=== PATIENT | female | born 1990 | race Caucasian/White ===

== ENCOUNTER 2017-11-09 11:20 | Outpatient (CLI) | payer BC, SELFPAY ==
[2017-11-09] MEDS: Lactated Ringers 1,000 ML 125 ML IV (11:45)
[2017-11-09 11:49] VITALS: BMI 31.5
--- NOTE | 2017-11-09 12:18 | PCM.OP.BLANK ---
Operative Report Date of Procedure: 11/09/17 Surgeon: Dr. eMry Meyers Leather Goods Assembler: none Procedure performed: Attempted External Cephalic Version Complications: NONE PRE OP: 37 weeks BREECH requesting trial of External Cephalic version Post OP: 37 weeks Breech presentation Anesthesia: None FHR: 140s mod blanca, + accels, no decels. Category 1 reactive. TOCO: occasional ctx PROCEDURE NOTE: Informed consent was obtained and bedside ultrasound confirmed still breech presentation on maternal left. heart tones 140s moderate variability with positive accelerations no decelerations category 1 reactive. Visual contractions on the monitor. Gel was placed on the maternal abdomen and at this time and attempted forward somersault was performed I was able to move the head to the maternal right mid abdomen. Continuous attempted a forward roll was performed not successful. This time then a backward roll was attempted and unable to disengage head was back to the maternal left. Time procedure was deemed complete unsuccessful patient will undergo a primary at 39 weeks and unless spontaneous rotation.
--- NOTE | 2017-11-09 12:25 | OP.PCM_ITS ---
Operative Report Date of Procedure: 11/09/17 Surgeon: Dr. Mery Meyers Certified Recreational Therapist: none Procedure performed: Attempted External Cephalic Version Complications: NONE PRE OP: 37 weeks BREECH requesting trial of External Cephalic version Post OP: 37 weeks Breech presentation Anesthesia: None FHR: 140s mod blanca, + accels, no decels. Category 1 reactive. TOCO: occasional ctx PROCEDURE NOTE: Informed consent was obtained and bedside ultrasound confirmed still breech presentation on maternal left. heart tones 140s moderate variability with positive accelerations no decelerations category 1 reactive. Visual contractions on the monitor. Gel was placed on the maternal abdomen and at this time and attempted forward somersault was performed I was able to move the head to the maternal right mid abdomen. Continuous attempted a forward roll was performed not successful. This time then a backward roll was attempted and unable to disengage head was back to the maternal left. Time procedure was deemed complete unsuccessful patient will undergo a primary at 39 weeks and unless spontaneous rotation.
[2017-11-09] MEDS: Terbutaline 1 MG/ML Vial 0.25 MG SC (14:10)
--- NOTE | 2017-11-09 14:43 | PCM.PN.OB ---
Subjective: ctxs spacing out s/p ECV attempt. Good FM . - Physical Exam General: Alert, Cooperative, No apparent distress Abdomen: Soft, Non Tender, Non-Distended Weight: 94.1 kg Body Mass Index (BMI) 31.5 Assessment/Plan A/p 37 weeks, breech, ctxs no evidence of labor d/c home w/ labor precautions and kick counts plan primary c/s if no spont. version
--- NOTE | 2017-11-13 08:08 | OB.TRI.NOTE ---
History of Present Illness Date of Service: 11/09/17 Was patient seen by the physician?: Yes Reason For Visit: External cephalic version Home Medications Medication Instructions Recorded Vits [Prenatabs FA] 1 tablet PO DAILY 11/09/17 Allergies No Known Allergies Allergy (Verified 11/09/17 11:50) Impression/Plan 27yo @ 37 wks gestation- BREECH 1) failed attempt at external cephalic version- SEE OPERATIVE NOTE
== END 2017-11-09 15:00 | disposition home or self-care (01) ==
LOC: WPOUT 11:35 → WP 11:36
PROVIDERS: Family Provider Family Medicine; PCP Family Medicine; Visit Provider Obstetrics & Gynecology
DX: O32.1XX0 Maternal care for breech presentation, not applicable or unspecified (principal); Z3A.37 37 weeks gestation of pregnancy
CPT/HCPCS: 59025; 59050; 59412; 96372; 99218; J7120; G0378

== ENCOUNTER 2017-11-23 10:25 | Inpatient (IN) | payer BC, SELFPAY ==
[2017-11-17 14:40] VITALS: BMI 31.4
[2017-11-23] VITALS (19 sets, daily range): BP systolic 103–129; BP diastolic 55–86; PULSE 72–86; RESP 14–18; TEMP 36.1–37; O2SAT 95–98
[2017-11-23] MEDS: Lactated Ringers 1,000 ML 999 ML IV (11:00)
[2017-11-23 11:13] LABS: Absolute Lymphocyte Count 1.53 X10^3/ul (0.83-4.51); Absolute Neutrophil Count 6.7 X10^3/uL (2.0-7.7); Basophil# 0.01 X10^3/uL; Basophil% 0.1 % (0-1); Eosinophil# 0.04 X10^3/uL; Eosinophils% 0.4 % (0-5); Hematocrit 35.4 % (37-47); Hemoglobin 11.6 g/dl (12.0-15.0); Lymphocyte # 1.53 X10^3/ul (4.0); Lymphocyte % 17.1 % (19-41); Mean Corp Hgb Conc 32.8 g/gl (32-36); Mean Corpuscular Hgb 28.9 pg (27.0-32.0); Mean Corpuscular Volume 88.1 fL (81-99); Mean Platelet Vol. 10.5 fl (6.2-12.0); Monocyte# 0.64 X10^3/uL; Monocyte% 7.2 % (0-10); Neutrophil % 74.9 % (47-70); Platelet Count 190 K/mm3 (150-450); RBC Distribution Width CV 13.3 % (11.6-14.6); RBC Distribution Width SD 43.1 fl (35.1-43.9); Red Blood Count 4.02 M/mm3 (4.2-5.4)
[2017-11-23 11:16] LABS: POSITIVE COUNT NO; POSITIVE DIFFERENTIAL NO; POSITIVE MORPHOLOGY NO
[2017-11-23] MEDS: Sodium Citrate/Citric Acid 30 ML UDC PO (11:45)
[2017-11-23] MEDS: Lactated Ringers 1,000 ML 150 ML IV (12:00)
[2017-11-23] MEDS: Oxytocin 30 units/NS 500 ml 30 UNITS/500 ML IV.SOLN 167 UNITS IV (12:11)
--- NOTE | 2017-11-23 12:43 | OP.PCM_ITS ---
Delivery Classification: Scheduled Final DEEDEE: 11/30/17 Final DEEDEE Source: US <20 weeks Gestational age: 39 Weeks and 0 Days Indications: Breech presentation- failed External cephalic version. - term gestation 39 wks. Indications for : Breech Description of Procedure: Surgeon: Dr. Mery Meyers Belt Picker:KIMBERLY Zazueta Belt Picker: Mihaela Brumfield MS3 Preoperative diagnosis: breech presentation 39 wks Postoperative diagnosis: breech presentation 39 weeks Findings: live famale in breech presentation - delivered without complication Anesthesia: Spinal Complications: None Estimated blood loss:700 Implantable devices: None Operative note: After informed consent was obtained the patient was taken the operating room she was given spinal anesthesia. She was then placed in the supine position. She was prepped and draped in the normal sterile fashion. Anesthesia was found to be adequate. At this time a Pfannenstiel skin incision was made with a knife was carried down to the underlying layer of the fascia. The fascial incision was then extended laterally using curved Morel scissor. Tensions was then turned to the superior aspect of the fascial edge was grasped with 2 straight Neptune clamps tented up and the rectus muscle dissected off sharply using curved Morel scissor. Attention was then turned to the inferior aspect where again Neptune clamps were placed in the rectus muscles were tented up and the fascia was dissected off sharply using the curved Morel scissor. Rectus muscles were then in the midline bluntly and peritoneum was entered bluntly. Gentle opposing traction was placed. At this time the vesicouterine peritoneum was identified. Scalpel was used to make a uterine incision in a low transverse fashion. The uterus was then entered bluntly gentle opposing traction was placed to extend this incision. Membranes were ruptured clear. 's buttocks was brought to the uterine incision was delivered atraumatically followed by legs, arms and then head . delayed cord clamping performed- Cord was clamped and cut was handed to the waiting nursery team. The Placenta was removed from the uterus. The uterus was then removed from the abdominal cavity. The uterus was cleared of all clots and debris using a lap. At this time the uterine incision was reapproximated using #1 Vicryl in a running locked fashion. Hemostasis was appreciated. followed by a second imbricating layer. Posterior cul-de-sac was then cleared of all clots and debris. Uterus was placed back in the abdominal cavity. Gutters were cleared of all clots and debris. Uterine incision was reevaluated and noted to be of excellent hemostasis. luis alberto placed. At this time the peritoneum was grasped with Kellys reapproximated using #2 Vicryl suture in a running fashion. Muscles then reapproximated using #2 Vicryl in a interrupted mattress suture fashion. Luis Alberto placed. Fascia was then reapproximated using #1 Vicryl in a running fashion. Subcu layer was reapproximated with #2 0 plain gut suture in an interrupted fashion. Subcu layer was closed using 4-0 M vicryl in a Pk needle in a subcu fashion. Dry sterile dressing was applied. Instrument lap needle count correct ?2. Anticipated normal postoperative course. Amniotic Membrane Rupture Type: Spontaneous Amniotic Fluid Description: Clear Placenta [facility] Drain: Cristobal to straight drain Cord Entanglement: None Nuchal Cord Compression: Without compression Cord Vessel Description: 3 Vessels Esitmated Blood Loss (ml): 700 Gender: Female (1 minute): 9 (5 minute): 9 Delayed cord clamping: Yes Pre-op Antibiotic Given: Ancef 2 grams IV x1 Pt instructed on risks of surgery: Bleeding, Anesthesia Risks, Infection, Injury to surrounding structure(s) including bowel and bladder Complications: None - Admit VTE Documentation VTE Present on Admission: Yes VTE Mechan Device Prophylaxis: SCD's VTE Pharm Prophylaxis ordered?: No
[2017-11-23] MEDS: Lactated Ringers 1,000 ML 100 ML IV ×2 (12:50→20:15)
[2017-11-23 13:04] LABS: Mucous, Urine 0 SEEN /hpf (<or=2+); Red Blood Cells-Urine 0 SEEN /hpf (0-5)
[2017-11-23 13:29] LABS: Color, Urine Yellow (Yellow); Glucose, Dipstick Normal (Normal); Ketone-Dipstick 5 mg/dl (Negative); Leukocyte Esterase-Dipstick 100 /ul (Negative); Nitrite-Dipstick Negative (Negative); Occult Blood-Urine 50 /ul (Negative); Protein-Dipstick Negative (Negative); Specific Gravity, Urine 1.005 (1.002-1.030); Urine Bilirubin Dipstick Negative (Negative); Urine Clarity Clear (Clear); Urine Urobilinogen Normal (Normal)
[2017-11-23 13:38] LABS: Bacteria 1+ /hpf (None Seen); Squamous Epithelial Cells - UA 5-10 SEEN /hpf (5-10); Transitional Epithelial - Ur 0-5 SEEN /hpf (0-5); White Blood Cells 0-5 SEEN /hpf (0-5)
[2017-11-23] MEDS: Ketorolac 30 MG/ML Syringe IV (17:45)
[2017-11-24] VITALS (11 sets, daily range): BP systolic 111–129; BP diastolic 67–83; PULSE 89–102; RESP 16; TEMP 35.7–37.2; O2SAT 94–98
[2017-11-24] MEDS: Ketorolac 30 MG/ML Syringe IV ×3 (00:07→12:09)
[2017-11-24] MEDS: Lactated Ringers 1,000 ML 100 ML IV (05:53)
[2017-11-24 07:01] LABS: Hematocrit 31.2 % (37-47); Hemoglobin 10.3 g/dl (12.0-15.0); Mean Corpuscular Hgb 29.4 pg (27.0-32.0); Mean Corpuscular Volume 89.1 fL (81-99); Mean Platelet Vol. 10.1 fl (6.2-12.0); Platelet Count 174 K/mm3 (150-450); RBC Distribution Width CV 13.5 % (11.6-14.6); RBC Distribution Width SD 44.2 fl (35.1-43.9); White Blood Count 8.8 K/mm3 (4.4-11.0)
[2017-11-24 07:05] LABS: Scan Indicated on CBC? Y/N NO
--- NOTE | 2017-11-24 08:01 | PN.OBGYN_ITS ---
Subjective: pt seen at bedside, doing well. pt reports good pain control. lochia mild. no flatus yet. pt denies CP, SOB, dizziness. breast feeding well - Physical Exam General: Alert, Oriented x3 Abdomen: Soft, Non-Distended, - - funud firm. incision dressing dry and intact Extremities: No Calf Tenderness Vital Signs Temp Pulse Resp BP Pulse Ox 97.5 F L 95 16 111/67 95 11/24/17 04:00 11/24/17 04:00 11/24/17 06:00 11/24/17 04:00 11/24/17 06:00 Oxygen Delivery Method Room Air Weight: 93.894 kg Body Mass Index (BMI) 31.4 Intake and Output for Last 24 Hours 11/22/17 11/23/17 11/24/17 23:59 23:59 23:59 Intake Total 2479 / 2479 900 / 900 Output Total 550 / 550 1400 / 1400 Balance 1929 / 1929 -500 / -500 Laboratory Tests Past 24 Hrs 11/23/17 11/23/17 11/23/17 11:00 11:00 12:55 WBC 9.0 RBC 4.02 L Hgb 11.6 L Hct 35.4 L MCV 88.1 MCH 28.9 MCHC 32.8 RDW 13.3 RDW Differential 43.1 Plt Count 190 MPV 10.5 Immature Gran % (Auto) 0.300 Neut % (Auto) 74.9 H Lymph % (Auto) 17.1 L Adams % (Auto) 7.2 Eos % (Auto) 0.4 Baso % (Auto) 0.1 Absolute Neuts (auto) 6.7 Absolute Lymphs (auto) 1.53 Total Counted Not Reportable Urine Color Yellow Urine Clarity Clear Urine pH 7.0 Ur Specific [place] 1.005 Urine Protein Negative Urine Glucose (UA) Normal Urine Ketones 5 H Urine Occult Blood 50 H Urine Nitrite Negative Urine Bilirubin Negative Urine Urobilinogen Normal Ur Leukocyte Esterase 100 H Urine RBC 0 SEEN Urine WBC 0-5 SEEN Ur Squamous Epith Cells 5-10 SEEN Ur Transition Epith Cell 0-5 SEEN Urine Bacteria 1+ Urine Mucus 0 SEEN Blood Type O POSITIVE Antibody Screen NEGATIVE 11/24/17 06:40 WBC 8.8 RBC 3.50 L Hgb 10.3 L Hct 31.2 L MCV 89.1 MCH 29.4 MCHC 33.0 RDW 13.5 RDW Differential 44.2 H Plt Count 174 MPV 10.1 Immature Gran % (Auto) Neut % (Auto) Lymph % (Auto) Adams % (Auto) Eos % (Auto) Baso % (Auto) Absolute Neuts (auto) Absolute Lymphs (auto) Total Counted Urine Color Urine Clarity Urine pH Ur Specific [place] Urine Protein Urine Glucose (UA) Urine Ketones Urine Occult Blood Urine Nitrite Urine Bilirubin Urine Urobilinogen Ur Leukocyte Esterase Urine RBC Urine WBC Ur Squamous Epith Cells Ur Transition Epith Cell Urine Bacteria Urine Mucus Blood Type Antibody Screen Medical Necessity - Tobacco Use Smoking Status: Never smoker Assessment/Plan POD#1, doing well routine care dc rollins ambulation pain mgmt
--- NOTE | 2017-11-24 08:16 | DCINST_ITS ---
Discharge Diet: No Restrictions Discharge Activity: Return to Normal Activity, May Not Drive - for 2 weeks, May not drive while taking narcotic pain medications., May Shower, May Take a Tub Bath - in 7 days. May resume sexual activity in: 4-6 weeks Lifting Restrictions: 20 pounds Additional Activity Instructions:: Nothing in the vagina for 4-6 weeks. You may return to work/school in 6 weeks. Call your doctor if your incision/area has: Continuous Slow Oozing, Sudden Increased Bleeding, Increased Pain/ Swelling, Increased Redness, Foul Smelling Discharge Call your doctor if you observe: Fever of 101 or Higher, Using more than one pad per hour - for 2 hours Suture Line Care: Avoid Pulling/Pushing, Avoid Pinching/Bending Cleanse incision/area with: Keep Dressing Clean & Dry Additional Instructions: If you experience any of the following, contact your healthcare provider. * Bleeding that soaks a pad every hour for 2 hours * Fever 100.4 or higher * Unrelieved incision or abdominal pain * Swelling, redness, discharge or bleeding from your incision or episiotomy site * Your incision begins to separate * Problems urinating (including inability to urinate or burning while urinating) . * Visual changes * Severe headache * Flu-like symptoms * Pain or redness in one of both of your breasts * Pain, warmth, tenderness or swelling in your legs, especially the calf area * Frequent nausea and vomiting * Symptoms of depression or anxiety If you experience any of the following, call 911 or go to the nearest Emergency Room. * Chest pain * Problems breathing * Seizure activity * Partial or complete paralysis of a body part, slurred speech, weakness or drooping of the face, or a sudden inability to walk or hold your balance Allergies/Adverse Reactions: Allergies No Known Allergies Allergy (Verified 11/09/17 11:50) Medications to take at Discharge Vits [Prenatabs FA ] 1 tablet PO DAILY 11/09/17 Naproxen [Naprosyn] 250 - 500 mg PO Q8H PRN PRN #60 tab 11/24/17 Oxycodone HCl/Acetaminophen [Percocet 5/325] 1 tablet PO Q6H PRN PRN 7 Days #28 tablet 11/24/17 Senna/Docusate Sodium [Senokot-S] 1 tab PO DAILY PRN #20 tab 11/24/17 SimETHICONE [Mylicon] 80 mg PO PCHS PRN #30 tab 11/24/17 The following prescriptions were given: Oxycodone HCl/Acetaminophen [Percocet 5/325] 1 tablet PO Q6H PRN PRN 7 Days #28 tablet PRN Reason: Pain Naproxen [Naprosyn] 250 - 500 mg PO Q8H PRN PRN #60 tab PRN Reason: Mild Pain (-11/14) Senna/Docusate Sodium [Senokot-S] 1 tab PO DAILY PRN #20 tab PRN Reason: Constipation SimETHICONE [Mylicon] 80 mg PO PCHS PRN #30 tab PRN Reason: Indigestion/stomach pain Follow-Up: Call to make an appointment with your doctor for an incision check in 1-2 weeks. You will also need a 6 week post- follow up appointment. Please Follow Up With: Mery Meyers MD - Call to make an appointment for an incision check in 1-2 [phone] When: You will need a post- check in 6 weeks. Primary Care Physician: Sha Hooker III, MD [Primary Care Provider] -
[2017-11-24] MEDS: 0.9% Saline Lock 10 ML Syringe IV (12:09)
[2017-11-24] MEDS: Acetaminophen 500 MG Tablet 1000 MG PO (20:44)
[2017-11-25] MEDS: Ketorolac 30 MG/ML Syringe IV ×3 (00:14→13:39)
[2017-11-25 01:57] VITALS: BP 111/83; PULSE 86; RESP 18; TEMP 36.1; O2SAT 96
[2017-11-25] MEDS: Senna/Docusate Sodium 1 Tablet PO (06:30)
[2017-11-25 08:02] VITALS: BP 118/78; PULSE 70; RESP 20; TEMP 36.3
--- NOTE | 2017-11-25 08:10 | PCM.PN.OB ---
Subjective: pt seen at bedside, doing well. pt reports good pain control. lochia mild. pt reports + flatus, denies CP, SOB, dizziness. breast feeding. - Physical Exam General: Alert, Oriented x3 Abdomen: Soft, Non-Distended, - - fundus firm. Incision site dry and intact Extremities: No Calf Tenderness Vital Signs Temp Pulse Resp BP Pulse Ox 97.4 F L 70 20 H 118/78 96 11/25/17 08:02 11/25/17 08:02 11/25/17 08:02 11/25/17 08:02 11/25/17 01:57 Oxygen Delivery Method Room Air Weight: 93.894 kg Body Mass Index (BMI) 31.4 Intake and Output for Last 24 Hours 11/23/17 11/24/17 11/25/17 23:59 23:59 23:59 Intake Total 2479 / 2479 1500 / 1500 Output Total 550 / 550 4100 / 4100 Balance 1929 / 1929 -2600 / -2600 Medical Necessity - Tobacco Use Smoking Status: Never smoker Assessment/Plan POD#2, doing well routine care pain mgmt dc home
[2017-11-25 15:35] VITALS: BP 127/91; PULSE 70; RESP 18; TEMP 36.4; O2SAT 98
--- NOTE | 2017-11-26 07:32 | PCM.DC.BLA ---
Discharge Summary Date of Admission: 11/23/17 Date of Discharge: 11/25/17 Summary: pt underwent primary cs for breech presentation at 39 weeks. pt had uncomplicated post op course and was discharged home on POD#2.
== END 2017-11-25 16:50 | disposition home or self-care (01) | DRG 766 ==
LOC: WP 11-24 13:40 → ACINP 11-26 13:44 → WP 01-11 09:14
PROVIDERS: Admitting Provider Obstetrics & Gynecology; Family Provider Family Medicine; PCP Family Medicine; Visit Provider Obstetrics & Gynecology
DX: O32.1XX0 Maternal care for breech presentation, not applicable or unspecified (principal); Z37.0 Single live birth; Z3A.39 39 weeks gestation of pregnancy
CPT/HCPCS: 81001; 85025; 85027; 86850; 86900; 99218; J7120; A4216; G0378; J2405

== ENCOUNTER 2019-06-10 05:20 | Inpatient (IN) | payer BC, SELFPAY ==
--- NOTE | 2019-06-07 10:52 | PCM.HP.BLA ---
History and Physical Date of Admission: 06/10/19 Mery Paul Physician MOTOR BIKE MECHANIC H&P Signed Encounter Date: 06/07/2019 Expand All Collapse All Hide copied text Mustapha for details Vale Cordon is a 29 year old female who presents for routine OB visit and preoperative visit for scheduled section at 40.6 weeks gestation. Patient wanted a TOLAC however has not made any cervical changes and is not in labor. We discussed a repeat section and patient wishes to proceed at this time. Patient denies any vaginal bleeding, leaking fluid, regular contractions. Patient reports good movement. ? PAST?MEDICAL?HISTORY PAST MEDICAL HISTORY Diagnosis Date ? Abnormal Pap smear 09/01/13 ? ASCUS, can't R/O HGSIL ? Abnormal Pap smear of cervix ? ? Asthma ? ? In teenage years ? Infectious mononucleosis 07/14 ? PAST?SURGICAL?HISTORY PAST SURGICAL HISTORY Procedure Laterality Date ? DELIVERY ONLY ? 11/23/2017 ? VAGINOSCOPY ? 09/14/13 ? CIN2 ? FAMILY?HISTORY FAMILY HISTORY Problem Relation Age of Onset ? Cancer Mother ? ? Thigh ? other (Brain tumor) Mother ? ? Diabetes Maternal Grandfather ? ? Heart Maternal Grandfather ? ? Diabetes Paternal Grandfather ? ? Cancer Paternal Grandmother ? ? Unsure of type ? SOCIAL?HISTORY Social History Socioeconomic History Marital status: Spouse name: Alfredo Number of children: 0 Years of education: 12 Highest education level: Not on file Occupational History Occupation: Sales Employer: [employer] Social Needs Financial resource strain: Not on file Food insecurity: Worry: Not on file Inability: Not on file Transportation needs: Medical: Not on file Non-medical: Not on file Tobacco Use Smoking status: Never Smoker Smokeless tobacco: Never Used Tobacco comment: No one in the household smokes. Substance and Sexual Activity Alcohol use: Yes Comment: Occasionally, not while Drug use: No Sexual activity: Yes Partners: Male Lifestyle Physical activity: Days per week: Not on file Minutes per session: Not on file Stress: Not on file Relationships Social connections: Talks on phone: Not on file Gets together: Not on file Attends rastafarian service: Not on file Active member of club or organization: Not on file Attends meetings of clubs or organizations: Not on file Relationship status: Not on file Intimate partner violence: Fear of current or ex partner: Not on file Emotionally abused: Not on file Physically abused: Not on file Forced sexual activity: Not on file Other Topics Concerns: Not on file Social History Narrative Not on file ? CURRENT?MEDICATIONS ? Current Outpatient Medications: cholecalciferol, vitamin D3, (VITAMIN D3 ORAL) Take by mouth. MULTIVITAMIN ORAL Take by mouth. PNV NO.95/FERROUS FUM/FOLIC AC ( ORAL) Take by mouth. ? No current facility-administered medications for this visit. Allergies As of Date: 06/07/2019 (No Active Allergies) Fully Assessed 06/07/2019 ? ? REVIEW OF SYSTEMS Abdomen: no pain .. Expanded ROS: GENERAL: Negative for fever Allergies and current medication updated:Yes ? EXAM: BP 100/64 Wt 200 lb (90.7kg) LMP 08/07/2018 ? GENERAL: pleasant, female in no apparent distress HEENT: Normocephalic and atraumatic NECK: full range of motion DERMATOLOGY: Normal, without lesions, non-icteric and non-hirsute BREAST: deferred ABDOMEN: soft, non-tender and gravid PELVIC: closed/50/-2 NEURO: alert and oriented x3,exam grossly non-focal EXTREMITIES: normal ? ASSESSMENT AND PLAN: Encounter Diagnosis ? ? ICD-10-CM ? 1. History of delivery, currently O34.219 URINE OB DIP B/O 2. 40 weeks gestation of Z3A.40 URINE OB DIP B/O ? 3. Pt has been counseled on risks/benefits and alternatives of surgery including but not limited to anesthesia, bleeding, infection, injury to pelvic structures including bowel, bladder, ureters and vessels. Pt wishes to proceed with surgery at this time. 4. Consent signed 5. Preop instructions reviewed 6. Labor and kick counts reviewed 7. Will recheck cervix prior to scheduled c/s if advanced cervical dilation would consider IOL. ? Mery Meyers MD ? Routine Office Visit on 06/07/2019
[2019-06-10] VITALS (23 sets, daily range): BP systolic 98–115; BP diastolic 50–83; PULSE 70–90; RESP 14–18; TEMP 35.6–36.8; O2SAT 95–100; BMI 29.0
[2019-06-10] MEDS: Lactated Ringers 1,000 ML 999 ML IV (05:37)
[2019-06-10 05:56] LABS: Absolute Lymphocyte Count 2.34 X10^3/uL (0.83-4.51); Absolute Neutrophil Count 2.6 X10^3/uL (2.0-7.7); Basophil# 0.04 X10^3/uL; Basophil% 0.7 % (0-1); Eosinophil# 0.05 X10^3/uL; Eosinophils% 0.9 % (0-5); Hematocrit 34.8 % (37-47); Hemoglobin 11.5 g/dL (12.0-15.0); Lymphocyte # 2.34 X10^3/ul (4.0); Lymphocyte % 41.5 % (19-41); Mean Corpuscular Hgb 29.6 pg (27.0-32.0); Mean Corpuscular Volume 89.5 fL (81-99); Monocyte# 0.63 X10^3/uL; Monocyte% 11.2 % (0-10); NRBC Flagged by Analyzer 0 % (0-5); Neutrophil # 2.55 X10^3/uL (2.7-7.7); Neutrophil % 45.2 % (47-70); Platelet Count 146 K/mm3 (150-450); RBC Distribution Width CV 13.4 % (11.6-14.6); RBC Distribution Width SD 44.2 fl (35.1-43.9); Red Blood Count 3.89 M/mm3 (4.2-5.4); White Blood Count 5.6 K/mm3 (4.4-11.0)
[2019-06-10] MEDS: Lactated Ringers 1,000 ML 150 ML IV (06:40)
[2019-06-10] MEDS: Sodium Citrate/Citric Acid 30 ML UDC PO (07:03)
[2019-06-10] MEDS: Cefazolin 2 GM in 0.9% Normal Saline 100 ML IV (07:15)
[2019-06-10] MEDS: Triamcinolone Acetonide 40 MG/ML Vial OPERA.SITE (07:56)
--- NOTE | 2019-06-10 08:06 | PCM.OPRPT ---
Delivery Classification: Scheduled Final DEEDEE: 06/04/19 Final DEEDEE Source: US <20 weeks Gestational age: 40 Weeks and 6 Days extractor plant operator: Marcelo Kolb Type of Anesthesia:: Spinal Special Medications: Kenalog 40mg Implants Used: none Date of Procedure: 06/10/19 Pre-Operative Diagnosis: Term gestation, repeat c/s Post-Operative Diagnosis: same- live female Indications for : Repeat Elective Description of Procedure: Operative note: After informed consent was obtained the patient was taken to the operating room she was given spinal anesthesia. sHe was placed in the supine position. She was then prepped and draped in normal sterile fashion. Once spinal anesthesia was found to be adequate skin incision was made with a scalpel in a Pfannenstiel fashion- elipitcal incision made around previous scar- which was removed. It was carried down to the underlying layer of the fascia. Fascia was then incised midline with scapel and extended laterally using curved quinteros. 2 straight Delta's were placed in the superior aspect of the fascial edge and the rectus muscles were dissected off sharply. Attention was then turned to the inferior aspect where again the fascial edge was grasped with 2 straight [place] clamps tented up and the rectus muscle dissected off sharply. At this time the rectus muscles were grasped in the midline using 2 Allis clamps and scalpel was used to separate the rectus muscles. Using blunt force the peritoneum was then entered. Metzenbaums were used to take down the rectus muscles inferiorly as well as the peritoneum. At this time the vesicouterine peritoneum was identified. Metzenbaum scissors were used to create a bladder flap and then taken down digitally. Uterine incision was made in a low transverse fashion with the scalpel and then entered bluntly. Gentle opposing traction was placed to extend the uterine incision. The membranes were ruptured amniotic fluid clear. Nuchal cord x 1 noted- reduced- Infant's head was then brought to the uterine incision was delivered atraumatically followed by the rest infant's body. At this time delayed cord clamping was performed mouth nose were suctioned. Infant was then handed to the waiting nursery team. The placenta was then removed with gentle traction. The uterus was removed from the intra-abdominal cavity is wrapped in a moist lap. He was cleared of all clots and debris using a moist lap. Ring clamps were placed on the uterine angles. #1 Vicryl suture was used in a running locked fashion for the first layer. Followed by second imbricating layer with #1 Vicryl. At this time then the uterus was placed back into abdominal cavity uterine incision was evaluated and noted to be of good hemostasis. Tubes and ovaries were evaluated they were normal. Great hemostasis was appreciated at this time the uterine incision was again evaluated good hemostasis was appreciated. The peritoneum was grasped with Kellys. Peritoneum and muscle was reapproximated using #2 Vicryl suture in a running fashion. The fascia was then reapproximated using #1 Vicryl in a running fashion. Subcutaneous layer was evaluated and Bovie was used for any small oozing that was noted per #2-0 plain gut suture was then used to reapproximate the subcutaneous layer 4-0 monocryl on a Pk needle was used to reapproximate the skin in a subcutaneous fashion. Kenalog 40mg (1ml) injected to incision to help prevent keloid formation. Dry sterile dressing was applied. Instrument lap needle count were correct ?2. Anticipated normal postoperative course for this patient. Amniotic Membrane Rupture Type: Artificial Amniotic Fluid Description: Clear Placenta Disposition: [facility] Drain: Cristobal to straight drain Cord Entanglement: Around neck x 1, loose Nuchal Cord Compression: Without compression Cord Vessel Description: 3 Vessels Esitmated Blood Loss (ml): 600 Gender: Male (1 minute): 8 (5 minute): 9 Delayed cord clamping: Yes Antibiotic Given: Ancef 2 grams IV x1 Pt instructed on risks of surgery: Bleeding, Anesthesia Risks, Infection, Need for Future C-Sections, Injury to surrounding structure(s) including bowel and bladder Complications: None - Admit VTE Documentation VTE Present on Admission: Yes VTE Mechan Device Prophylaxis: SCD's VTE Pharm Prophylaxis ordered?: No
[2019-06-10] MEDS: Oxytocin 30 units/NS 500 ml 30 UNITS/500 ML IV.SOLN 167 UNITS IV (08:20)
[2019-06-10] MEDS: Lactated Ringers 1,000 ML 100 ML IV (11:27)
[2019-06-10] MEDS: Ketorolac 30 MG/ML Syringe IV ×2 (12:33→18:02)
[2019-06-10] MEDS: 0.9% Saline Lock 10 ML Syringe IV (12:34)
[2019-06-10] MEDS: Acetaminophen 500 MG Tablet 1000 MG PO (16:10)
[2019-06-11] VITALS (7 sets, daily range): BP systolic 100–123; BP diastolic 63–83; PULSE 71–90; RESP 16; TEMP 36.7–37.2; O2SAT 95–98
[2019-06-11] MEDS: 0.9% Saline Lock 10 ML Syringe IV ×5 (00:12→11:41)
[2019-06-11] MEDS: Ketorolac 30 MG/ML Syringe IV ×4 (00:12→17:43)
[2019-06-11 06:05] LABS: Hematocrit 31.6 % (37-47); Hemoglobin 10.4 g/dL (12.0-15.0); Mean Corp Hgb Conc 32.9 g/dL (32-36); Mean Corpuscular Hgb 30.1 pg (27.0-32.0); Mean Corpuscular Volume 91.6 fL (81-99); Platelet Count 121 K/mm3 (150-450); RBC Distribution Width CV 13.5 % (11.6-14.6); RBC Distribution Width SD 45.5 fl (35.1-43.9); Red Blood Count 3.45 M/mm3 (4.2-5.4); White Blood Count 6.5 K/mm3 (4.4-11.0)
--- NOTE | 2019-06-11 07:56 | PN.OBGYN_ITS ---
Subjective: pt seen at bedside, doing well. pt reports good pain control. lochia mild. Breast feeding well. Passing flatus and voiding w/o difficulty. - Physical Exam General: Alert, Oriented x3 Abdomen: Soft, Non-Distended, Passing Flatus, - - fundus firm. dressing intact- small areas of old blood- not saturated Extremities: No Calf Tenderness Vital Signs Temp Pulse Resp BP Pulse Ox 98.0 F 89 16 100/65 95 06/11/19 04:00 06/11/19 06:00 06/11/19 06:00 06/11/19 04:00 06/11/19 06:00 Oxygen Delivery Method Room Air Weight: 89.1 kg Body Mass Index (BMI) 29.0 Intake and Output for Last 24 Hours 06/09/19 06/10/19 06/11/19 23:59 23:59 23:59 Intake Total 2197.5 / 2197.5 Output Total 2800 / 2800 Balance -602.5 / -602.5 Laboratory Tests Past 24 Hrs 06/11/19 04:45 WBC 6.5 RBC 3.45 L Hgb 10.4 L Hct 31.6 L MCV 91.6 MCH 30.1 MCHC 32.9 RDW Std Deviation 45.5 H RDW Coeff of Zay 13.5 Plt Count 121 L MPV 10.0 Medical Necessity - Tobacco Use Smoking Status: Never smoker Assessment/Plan POD#1, doing well routine care pain mgmt ambulation
[2019-06-11] MEDS: Senna/Docusate Sodium 1 Tablet PO (14:14)
[2019-06-11] MEDS: oxyCODONE 5 MG Tablet PO ×2 (16:05→21:07)
[2019-06-12] MEDS: Ketorolac 30 MG/ML Syringe IV ×2 (00:03→06:12)
[2019-06-12 02:00] VITALS: BP 119/86; PULSE 86; RESP 16; TEMP 36.6
--- NOTE | 2019-06-12 08:45 | PCM.PN.OB ---
Subjective: She is seen at bedside doing well. Patient reports good pain control. Voiding without difficulty. Passing flatus. Breast-feeding well. - Physical Exam General: Alert, Oriented x3 Abdomen: Bowel Sounds Present, Non-Distended, - - incision dressing intact- dry Extremities: No Calf Tenderness Vital Signs Temp Pulse Resp BP Pulse Ox 97.9 F 86 16 119/86 H 98 06/12/19 02:00 06/12/19 02:00 06/12/19 02:00 06/12/19 02:00 06/11/19 14:00 Oxygen Delivery Method Room Air Weight: 89.1 kg Body Mass Index (BMI) 29.0 Intake and Output for Last 24 Hours 06/10/19 06/11/19 06/12/19 23:59 23:59 23:59 Intake Total 2197.5 / 2197.5 Output Total 2800 / 2800 Balance -602.5 / -602.5 Medical Necessity - Tobacco Use Smoking Status: Never smoker Assessment/Plan POD#2, doing well routine care pain mgmt dc home nipple cream ordered.
--- NOTE | 2019-06-12 08:46 | DCINST_ITS ---
Discharge Diet: No Restrictions Discharge Activity: Return to Normal Activity, May Not Drive - for 2 weeks, May not drive while taking narcotic pain medications., May Shower, May Take a Tub Bath - in 7 days. May resume sexual activity in: 4-6 weeks Lifting Restrictions: 20 pounds Additional Activity Instructions:: Nothing in the vagina for 4-6 weeks. You may return to work/school in 6 weeks. Call your doctor if your incision/area has: Continuous Slow Oozing, Sudden Increased Bleeding, Increased Pain/ Swelling, Increased Redness, Foul Smelling Discharge Call your doctor if you observe: Fever of 101 or Higher, Using more than one pad per hour - for 2 hours Suture Line Care: Avoid Pulling/Pushing, Avoid Pinching/Bending Cleanse incision/area with: Keep Dressing Clean & Dry Additional Instructions: If you experience any of the following, contact your healthcare provider. * Bleeding that soaks a pad every hour for 2 hours * Fever 100.4 or higher * Unrelieved incision or abdominal pain * Swelling, redness, discharge or bleeding from your incision or episiotomy site * Your incision begins to separate * Problems urinating (including inability to urinate or burning while urinating). * Visual changes * Severe headache * Flu-like symptoms * Pain or redness in one of both of your breasts * Pain, warmth, tenderness or swelling in your legs, especially the calf area * Frequent nausea and vomiting * Symptoms of depression or anxiety If you experience any of the following, call 911 or go to the nearest Emergency Room. * Chest pain * Problems breathing * Seizure activity * Partial or complete paralysis of a body part, slurred speech, weakness or drooping of the face, or a sudden inability to walk or hold your balance Allergies/Adverse Reactions: Allergies No Known Allergies Allergy (Verified 06/10/19 05:34) Medications to take at Discharge Vits [Prenatabs FA ] 1 tablet PO DAILY 11/09/17 Ibuprofen [Motrin] 600 mg PO Q6H PRN PRN #60 tab 06/12/19 Oxycodone HCl/Acetaminophen [Percocet 5/325] 1 tab PO Q6H PRN PRN 7 Days #20 tab 06/12/19 Senna/Docusate Sodium [Senokot-S] 1 - 2 tab PO DAILY PRN #20 tab 06/12/19 SimETHICONE [Mylicon] 80 mg PO PCHS PRN #20 tab 06/12/19 The following prescriptions were given: Ibuprofen [Motrin] 600 mg PO Q6H PRN PRN #60 tab PRN Reason: Mild Pain (1-11/14) Prescription Printed SimETHICONE [Mylicon] 80 mg PO PCHS PRN #20 tab PRN Reason: Indigestion/stomach pain Prescription Printed Oxycodone HCl/Acetaminophen [Percocet 5/325] 1 tab PO Q6H PRN PRN 7 Days #20 tab PRN Reason: Pain Score 1-06/16 Prescription Printed Senna/Docusate Sodium [Senokot-S] 1 - 2 tab PO DAILY PRN #20 tab PRN Reason: Constipation Prescription Printed Follow-Up: Call to make an appointment with your doctor for an incision check in 1-2 weeks. You will also need a 6 week post- follow up appointment. Test results from this visit will be discussed in further detail at your follow- up appointment, if applicable. Please Follow Up With: Mery Meyers MD - Call to make an appointment for an incision check in 1-2 [phone] When: You will need a post- check in 6 weeks. Primary Care Physician: Sha Hooker III, MD [Primary Care Provider] -
[2019-06-12 08:47] VITALS: BP 112/78; PULSE 90; RESP 16; TEMP 36.4; O2SAT 97
--- NOTE | 2019-06-12 08:47 | PCM.DC.BLA ---
Discharge Summary Date of Admission: 06/10/19 Date of Discharge: 06/12/19 Summary: Patient admitted to [facility] on 06/10/2019 for scheduled repeat section since spontaneous labor did not proceed. Patient underwent a repeat low transverse section without complication. Live female was born. Patient had a normal postoperative course was uncomplicated. She discharged home on postoperative day #2 06/12/2019 - Physical Exam Vital Signs Temp Pulse Resp BP Pulse Ox 97.9 F 86 16 119/86 H 98 06/12/19 02:00 06/12/19 02:00 06/12/19 02:00 06/12/19 02:00 06/11/19 14:00 Oxygen Delivery Method Room Air Weight: 89.1 kg Body Mass Index (BMI) 29.0 Intake and Output for Last 24 Hours 06/10/19 06/11/19 06/12/19 23:59 23:59 23:59 Intake Total 2197.5 / 2197.5 Output Total 2800 / 2800 Balance -602.5 / -602.5
== END 2019-06-12 10:50 | disposition home or self-care (01) | DRG 788 ==
PROVIDERS: Admitting Provider Obstetrics & Gynecology; Family Provider Family Medicine; PCP Family Medicine; Referring Provider Obstetrics & Gynecology; Visit Provider Obstetrics & Gynecology
PROC: 10D00Z1 Extraction of Products of Conception, Low, Open Approach (ICD-10-PCS; CPT 59514; principal; 2019-06-10 07:15)
DX: O48.0 Post-term pregnancy (principal); Z3A.40 40 weeks gestation of pregnancy; O69.81X0 Labor and delivery complicated by cord around neck, without compression, not applicable or unspecified; Z37.0 Single live birth
CPT/HCPCS: 85025; 85027; 86850; 86900; 86901; 99218; J7120; A4216; G0378; J2405

== ENCOUNTER 2021-10-22 17:50 | Outpatient (CLI) | payer OTHER, SELFPAY ==
[2021-10-22 18:06] VITALS: BMI 29.1
[2021-10-22] MEDS: 0.9% Normal Saline 1,000 ML 999 ML IV (19:00)
[2021-10-22] MEDS: Ondansetron 4 MG/2 ML Vial IM (19:07)
[2021-10-22 19:14] VITALS: TEMP 37
[2021-10-22 19:16] VITALS: BP 119/79; PULSE 111; O2SAT 97
[2021-10-22 19:19] LABS: Hematocrit 36.9 % (37-47); Hemoglobin 12.8 g/dL (12.0-15.0); Mean Corp Hgb Conc 34.7 g/dL (32-36); Mean Corpuscular Hgb 31.8 pg (27.0-32.0); Mean Corpuscular Volume 91.6 fL (81-99); Mean Platelet Vol. 10.2 fl (6.2-12.0); Platelet Count 153 K/mm3 (150-450); RBC Distribution Width CV 12.6 % (11.6-14.6); RBC Distribution Width SD 41.6 fl (35.1-43.9); Red Blood Count 4.03 M/mm3 (4.2-5.4); White Blood Count 7.4 K/mm3 (4.4-11.0)
[2021-10-22 19:40] LABS: ALB/GLOB Ratio 0.7 RATIO (0.9-2.4); AST(SGOT) 12 U/L (15-37); Alanine Aminotransfer ALT/SGPT 16 U/L (13-56); Albumin, Serum 2.9 g/dL (3.2-5.0); Alkaline Phosphatase 202 U/L (45-117); Anion Gap 6 (5-15); BUN 4 mg/dL (7-18); BUN/Creat Ratio 9.5 RATIO (10-20); Calcium,Total 8.7 mg/dL (8.5-10.1); Chloride 106 mmol/L (98-107); Creatinine, Serum 0.42 mg/dL (0.55-1.02); EST Glomerular Filtration Rate 188 mL/min (>60); Est Glom Filt Rate - Afr Amer 228 mL/min (>60); Estimated Creatinine Clearance 206.55 ml/min; Globulin 4.2 g/dL (2.2-4.2); Glucose 80 mg/dL (74-106); Potassium 3.5 mmol/L (3.5-5.1); Protein, Total 7.1 g/dL (6.4-8.2); Sodium Level 136 mmol/L (136-145)
--- NOTE | 2021-10-27 05:11 | OB.TRI.NOTE ---
HPI - General HPI Narrative GIUSEPPE DICKSON, is a 31 F who presents for N&V. Maternal Data Information Final DEEDEE: 11/07/21 Gestational age: 37&5 PFSH PFSH Home Medications Prenatabs FA 1 tab PO DAILY 11/09/17 [History Last Taken 10/21/21 21:00] Allergy/AdvReac Type Severity Reaction Status Date / Time No Known Allergies Allergy Verified 10/22/21 19:09 Social History Smoking Status: Never smoker History Elective abortions Hx Para 1 Spontaneous abortions Hx # Term Pregnancies Ectopic pregnancies Hx # Pregnancies Multiple births # of living children NST FHR Rate Baby A Baseline: 130 Variability:: Moderate Accelerations:: 15 x 15 Decelerations:: Variable NST Reactive:: Yes Uterine Activity:: Irregular Assessment & Plan (1) Nausea and vomiting in : COMMENT: 37&5 PLAN: Labs & IV hydration Reactive NST
== END 2021-10-22 23:59 | disposition home or self-care (01) ==
LOC: WPOUT 18:00 → WP 18:01
PROVIDERS: Visit Provider Obstetrics & Gynecology
DX: O21.9 Vomiting of pregnancy, unspecified (principal); Z3A.37 37 weeks gestation of pregnancy
CPT/HCPCS: 96360; 96361; 36415; 59025; 59050; 80053; 85027; 99218; J7030; J7040; G0378; J2405

== ENCOUNTER 2021-10-31 09:25 | Inpatient (IN) | payer OTHER, SELFPAY ==
[2021-10-31] VITALS (22 sets, daily range): BP systolic 103–125; BP diastolic 66–83; PULSE 77–155; RESP 12–18; TEMP 36.2–36.6; O2SAT 82–99; BMI 29.5
--- NOTE | 2021-10-31 08:03 | PCM.HP.BLA ---
History and Physical Date of Admission: 10/31/21 Pre-Op History and Physical HPI: The patient is a 31 year old female presenting for pre-operative visit. She is scheduled for , for elective repeat cs at 39 weeks on 10/31/21. Procedure discussed along with risks, benefits and complications. Other alternatives discussed for management. Consent form signed? Yes. PAST MEDICAL HISTORY PAST MEDICAL HISTORY Diagnosis Date ? Abnormal Pap smear 09/01/13 ASCUS, can't R/O HGSIL ? Abnormal Pap smear of cervix ? Asthma In teenage years ? Infectious mononucleosis 07/14 PAST SURGICAL HISTORY PAST SURGICAL HISTORY Procedure Laterality Date ? DELIVERY ONLY 11/23/2017 ? DELIVERY ONLY 06/10/2019 RC/S low transverse ? VAGINOSCOPY 09/14/13 CIN2 CURRENT MEDICATIONS Current Outpatient Medications Medication Sig Dispense Refill ? OTC NUTRITIONAL SUPPLEMENT Collagen powder ? PNV NO.95/FERROUS FUM/FOLIC AC ( ORAL) Take by mouth. No current facility-administered medications for this visit. ALLERGIES: Sonido Perox-Hc, Cleanser No.14 PERSONAL HISTORY: SOCIAL HISTORY Social History Tobacco Use ? Smoking status: Never Smoker ? Smokeless tobacco: Never Used ? Tobacco comment: No one in the household smokes. Substance Use Topics ? Alcohol use: Yes Comment: Occasionally, not while ? Drug use: No FAMILY HISTORY: FAMILY HISTORY FAMILY HISTORY Problem Relation Age of Onset ? Cancer Mother Thigh ? other (Brain tumor) Mother ? No Known Problems Father ? No Known Problems Sister ? No Known Problems Maternal Grandmother ? Diabetes Maternal Grandfather ? Heart Maternal Grandfather ? Cancer Paternal Grandmother Unsure of type ? Diabetes Paternal Grandfather ? No Known Problems Daughter ? No Known Problems Daughter REVIEW OF SYMPTOMS: negative except as noted above PHYSICAL EXAMINATION: VITALS: Blood pressure 104/60, weight 199 lb (90.3 kg), last menstrual period 01/31/2021, currently . GENERAL: The patient is well nourished, well hydrated in no acute distress. , The patient is oriented to time, place, and person. NECK: full range of motion ABD: soft, gravid,non tender GENITALIA: normal IMPRESSION: repeat elctive c/s at 39 weeks PLAN: R/CS at 39 weeks Pt has been counseled on risks/benefits and alternatives of surgery including but not limited to anesthesia, bleeding, infection, injury to pelvic structures including bowel, bladder, ureters and vessels. Pt wishes to proceed with surgery at this time. Risk for blood transfusion reviewed- will accept PRE OP covid ordered Pre and Post op instruction reviewed Will inject Kenalog at time of cs closure for keloid prevention I have reviewed and updated past medical and surgical history, medications and allergies Mery Paul MD
[2021-10-31] MEDS: Lactated Ringers 1,000 ML 999 ML IV (09:45)
[2021-10-31 10:02] LABS: Absolute Lymphocyte Count 1.51 X10^3/uL (0.83-4.51); Absolute Neutrophil Count 5.1 X10^3/uL (2.0-7.7); Basophil# 0.02 X10^3/uL; Basophil% 0.3 % (0-1); Eosinophil# 0.06 X10^3/uL; Eosinophils% 0.8 % (0-5); Lymphocyte # 1.51 X10^3/ul (0.83-4.51); Lymphocyte % 21.2 % (19-41); Mean Corp Hgb Conc 36.1 g/dL (32-36); Mean Corpuscular Volume 88.7 fL (81-99); Mean Platelet Vol. 10.8 fl (6.2-12.0); Monocyte# 0.37 X10^3/uL; Monocyte% 5.2 % (0-10); NRBC Flagged by Analyzer 0 % (0-5); Neutrophil # 5.09 X10^3/uL (2.7-7.7); Neutrophil % 71.4 % (47-70); Platelet Count 210 K/mm3 (150-450); RBC Distribution Width CV 12.3 % (11.6-14.6); RBC Distribution Width SD 39.9 fl (35.1-43.9); Red Blood Count 4.06 M/mm3 (4.2-5.4); White Blood Count 7.1 K/mm3 (4.4-11.0)
[2021-10-31] MEDS: Acetaminophen 500 MG Tablet 1000 MG PO ×2 (10:25→17:01)
[2021-10-31] MEDS: Lactated Ringers 1,000 ML 150 ML IV (10:45)
[2021-10-31] MEDS: Sodium Citrate/Citric Acid 30 ML UDC PO (11:48)
[2021-10-31] MEDS: Cefazolin 2 GM in 0.9% Normal Saline 100 ML IV (12:00)
[2021-10-31] MEDS: Triamcinolone Acetonide 40 MG/ML Vial ID (12:40)
--- NOTE | 2021-10-31 12:49 | EX.PCM.OBRPT ---
Assessment & Plan (1) Delivery by section: Maternal Data Information Final DEEDEE Source: US <20 weeks Gestational age: 39 Details Operative Information Date of Procedure: 10/31/21 Pre-Operative Diagnosis: term gestation, previous cs Post-Operative Diagnosis: same, live male Indications for : Repeat Elective Classification: Scheduled Procedure Type: low transverse sheet metal fabricator #1: Chastity Bruner Type of Anesthesia: Spinal Antibiotic Given: Ancef 2 grams IV x1 Drain: Cristobal to straight drain Estimated Blood Loss: 600 Fluids Replaced: 1100 Procedure Start Time: 12:15 Procedure Stop Time: 12:42 Time of Delivery: 12:20 Findings Description of Procedure: After informed consent was obtained the patient was taken the operating room she was given spinal anesthesia. She was then placed in the supine position. She was prepped and draped in the normal sterile fashion. Anesthesia was found to be adequate. At this time a Pfannenstiel skin incision was made with a knife was carried down to the underlying layer of the fascia. The fascial incision was then extended laterally using curved Morel scissor. Attention was then turned to the superior aspect of the fascial edge was grasped with 2 straight Delta clamps tented up and the rectus muscle dissected off sharply using curved Morel scissor. Attention was then turned to the inferior aspect where again Delta clamps were placed in the rectus muscles were tented up and the fascia was dissected off sharply using the curved Morel scissor. Rectus muscles were then in the midline bluntly and peritoneum was entered bluntly. Gentle opposing traction was placed. minimal adhesions noted- At this time the vesicouterine peritoneum was identified. metzenbaum used to create bladder flap and take down adhsesion. Scalpel was used to make a uterine incision in a low transverse fashion. The uterus was then entered bluntly gentle opposing traction was placed to extend this incision. Membranes were ruptured clear. 's head was not engaged- freely mobile- Kiwi vacuum applied at flexion point, green suction zone obtained and with gentle traction head was brought to the uterine incision was delivered atraumatically. delayed cord clamping performed. Cord was clamped and cut infant was handed to the waiting nursery team. The Placenta was removed from the uterus. The uterus was then removed from the abdominal cavity. The uterus was cleared of all clots and debris using a lap. At this time the uterine incision was reapproximated using #1 Vicryl in a running locked fashion. Second imbricating layer placed with 1-0 vicryl. Hemostasis was appreciated. Posterior cul-de-sac was then cleared of all clots and debris. ovaries and tubes normal. Uterus was placed back in the abdominal cavity. Gutters were cleared of all clots and debris. Uterine incision was reevaluated and noted to be of excellent hemostasis. At this time the peritoneum and muscle were grasped with Kellys reapproximated using #2 Vicryl suture in a running fashion. Fascia was then reapproximated using #1 Vicryl in a running fashion. Subcu layer was reapproximated with #2 0 plain gut suture in an interrupted fashion. Subcu layer was closed using 4-0 vicryl in a subcu fashion. Kenalog 40mg/ml injected around incision due to h/o keloid scarring after first c/s. Steri strips applied. Dry sterile dressing was applied. Instrument lap needle count correct ?2. Anticipated normal postoperative course. Presentation: Positive for Vertex Amniotic Membrane Rupture Type: Artificial Amniotic Fluid Description: Clear Placental Delivery Description: Expressed Placenta Disposition: [facility] Cord Vessel Description: 3 Vessels Cord Entanglement: None Infant A Gender: Male (1 minute): 9 (5 minute): 9 Delayed Cord Clamping: Yes Complications Risks of Surgery Discussed w/Patient: Bleeding, Anesthesia Risks, Infection, Need for Future C-Sections and Injury to surrounding structure(s) including bowel and bladder Complications: none
[2021-10-31] MEDS: Oxytocin 30 units/NS 500 ml 30 UNITS/500 ML IV.SOLN 167 UNITS IV (13:00)
[2021-10-31] MEDS: Ketorolac 30 MG/ML Syringe IV ×2 (13:56→20:36)
[2021-10-31] MEDS: Lactated Ringers 1,000 ML 100 ML IV (15:57)
[2021-11-01] VITALS (9 sets, daily range): BP systolic 102–107; BP diastolic 62–74; PULSE 77–94; RESP 14–16; TEMP 36.1–36.8; O2SAT 81–99
[2021-11-01] MEDS: Acetaminophen 500 MG Tablet 1000 MG PO ×3 (00:20→12:30)
[2021-11-01] MEDS: Ketorolac 30 MG/ML Syringe IV ×2 (01:55→07:57)
[2021-11-01] MEDS: 0.9% Saline Lock 10 ML Syringe IV ×2 (01:56→07:58)
[2021-11-01 06:16] LABS: Hematocrit 30.2 % (37-47); Hemoglobin 10.6 g/dL (12.0-15.0); Mean Corp Hgb Conc 35.1 g/dL (32-36); Mean Corpuscular Hgb 31.6 pg (27.0-32.0); Mean Corpuscular Volume 90.1 fL (81-99); Mean Platelet Vol. 10.4 fl (6.2-12.0); Platelet Count 166 K/mm3 (150-450); RBC Distribution Width CV 12.5 % (11.6-14.6); RBC Distribution Width SD 41.3 fl (35.1-43.9); Red Blood Count 3.35 M/mm3 (4.2-5.4); White Blood Count 9.5 K/mm3 (4.4-11.0)
--- NOTE | 2021-11-01 08:31 | PCM.PN.OB ---
Subjective Subjective Patient seen at bedside. Feeling good. Denies pain, headache, dizziness, CP, or SOB. Ambulating and voiding without difficulty. Lochia minimal. with minimal support. slightly tongue tied and being evaluated by department. Patient desires discharge home later today. Objective Data Objective Data Vital Signs: Vital Signs Temp Pulse Resp BP Pulse Ox 98 F 89 16 103/70 99 11/01/21 08:10 11/01/21 08:10 11/01/21 08:10 11/01/21 08:10 11/01/21 08:10 Oxygen Delivery Method Room Air Weight: 199 lb 8.293 oz Body Mass Index (BMI) 29.5 Intake & Output: Intake and Output for Last 24 Hours 10/30/21 10/31/21 11/01/21 23:59 23:59 23:59 Intake Total 3302.5 / 3302.5 Output Total 1350 / 1350 1350 / 1350 Balance 1952.5 / 1952.5 -1350 / -1350 Lab / Micro Data Result Diagrams: 11/01/21 06:10 Labs: Laboratory Results - last 24 hr 10/31/21 09:45: WBC 7.1, RBC 4.06 L, Hgb 13.0, Hct 36.0 L, MCV 88.7, MCH 32.0, MCHC 36.1 H, RDW Std Deviation 39.9, RDW Coeff of Zay 12.3, Plt Count 210, MPV 10.8, Immature Gran % (Auto) 1.100 H, Neut % (Auto) 71.4 H, Lymph % (Auto) 21.2, [place] % (Auto) 5.2, Eos % (Auto) 0.8, Baso % (Auto) 0.3, Absolute Neuts (auto) 5.1, Absolute Lymphs (auto) 1.51, Nucleated RBC % 0 10/31/21 09:45: Blood Type O POSITIVE, Antibody Screen NEGATIVE 11/01/21 06:10: WBC 9.5, RBC 3.35 L, Hgb 10.6 L, Hct 30.2 L, MCV 90.1, MCH 31.6, MCHC 35.1, RDW Std Deviation 41.3, RDW Coeff of Zay 12.5, Plt Count 166, MPV 10.4 ROS Eyes Eyes: Denies blurry vision, change in vision or spots in vision ENT HEENT: Denies dizziness or headache(s) Cardiovascular Cardiovascular: Denies abdominal pain, chest pain or dyspnea Respiratory/Chest Respiratory/Chest: Denies cough, dyspnea, shortness of breath at rest or shortness of breath with exertion Gastrointestinal Gastrointestinal: Denies abdominal pain, diarrhea or vomiting Genitourinary Genitourinary: Denies change in urinary stream, difficulty urinating or dysuria Musculoskeletal Musculoskeletal: Reports none Integumentary Integumentary: Denies rash Neurologic Neurologic: Denies dizziness, headache(s), memory loss or weakness Physical Exam Narrative Dressing with drainage present. No drainage outside of outline. Const alert and no apparent distress General Appearance: cooperative and comfortable Exam Limitations: no limitations HEENT normocephalic Eyes General Eye: normal appearance of both eyes Neck full ROM General: normal visual inspection Chest Chest: symmetrical chest wall rise Resp normal respiratory effort and normal air movement Effort and Inspection: symmetric chest movement Auscultation: clear to auscultation bilaterally Cardio regular rate and regular rhythm GI normal to inspection, nondistended, normoactive bowel sounds Back/Spine normal ROM Extremity full ROM and no calf tenderness General Extremity: normal exam except as noted Skin no rashes or lesions noted Neuro CN's II-XII intact bilaterally Psych mental status grossly normal Assessment & Plan (1) Delivery by section: (2) Mother currently breast-feeding: PLAN: PO Day #1 Repeat C/S Routine care support Anticipate discharge home later today
--- NOTE | 2021-11-01 08:40 | DS.PCM_ITS ---
Providers Date of Admission: 10/31/21 Diagnosis Discharge Diagnosis (1) Delivery by section: Status: Acute (2) Mother currently breast-feeding: Status: Acute Code(s): Z39.1 - Encounter for care and examination of lactating mother Medications at Discharge Home Medications Prenatabs FA 1 tab PO DAILY 11/09/17 Hospital Course Operations section Summary of Care Provided Hospital Course: Patient here for repeat section. Hospital course was uneventful. Physical Exam Const alert and no apparent distress General Appearance: cooperative and comfortable Exam Limitations: no limitations HEENT normocephalic Eyes General Eye: normal appearance of both eyes Neck full ROM General: normal visual inspection Chest Chest: symmetrical chest wall rise Resp normal respiratory effort and normal air movement Effort and Inspection: symmetric chest movement Auscultation: clear to auscultation bilaterally Cardio regular rate and regular rhythm GI normal to inspection, nondistended, normoactive bowel sounds Back/Spine normal ROM Extremity full ROM and no calf tenderness General Extremity: normal exam except as noted Skin no rashes or lesions noted Neuro CN's II-XII intact bilaterally Psych mental status grossly normal Weight / BMI Weight Weight: 199 lb 8.293 oz Body Mass Index (BMI) 29.5 ABG / Lab / Microbiology Data Result Diagrams: 11/01/21 06:10 Laboratory: Laboratory Results - last 24 hr 10/31/21 09:45: WBC 7.1, RBC 4.06 L, Hgb 13.0, Hct 36.0 L, MCV 88.7, MCH 32.0, MCHC 36.1 H, RDW Std Deviation 39.9, RDW Coeff of Zay 12.3, Plt Count 210, MPV 10.8, Immature Gran % (Auto) 1.100 H, Neut % (Auto) 71.4 H, Lymph % (Auto) 21.2, [place] % (Auto) 5.2, Eos % (Auto) 0.8, Baso % (Auto) 0.3, Absolute Neuts (auto) 5.1, Absolute Lymphs (auto) 1.51, Nucleated RBC % 0 10/31/21 09:45: Blood Type O POSITIVE, Antibody Screen NEGATIVE 11/01/21 06:10: WBC 9.5, RBC 3.35 L, Hgb 10.6 L, Hct 30.2 L, MCV 90.1, MCH 31.6, MCHC 35.1, RDW Std Deviation 41.3, RDW Coeff of Zay 12.5, Plt Count 166, MPV 10.4 D/C Instructions Discharge Diet: No restrictions May resume sexual activity in: 6-8 weeks Weight Bearing Status: Weight bearing as tolerated Lifting Restrictions: 20 lbs Call your doctor if your incision/area has: Continuous Slow Oozing, Increased Pain/ Swelling, Increased Redness, Foul Smelling Discharge and Swelling at the incision site Call your doctor if you observe: Fever of 101 or Higher, Inability to urinate, Using more than 1 pad per hour, Shortness of breath, Chest pain, Calf discomfort and Uncontrolled pain Remove Dressing in: 5 days Cleanse incision/area with: Soap & Water and Keep Dressing Clean & Dry When: 1 week in office for incision check or sooner if needed 6 weeks Meaningful Use Info Meaningful Use Diagnoses (Choose all that apply): None applicable Discharge Plan Admission Admit Date/Time: 10/31/21 09:25 Primary Reason for Your Visit: Repeat Cesaean Section Attending Provider: Mery Meyers Discharge Orders/Prescriptions Prescriptions: No Action Prenatabs FA 1 TABLET tablet 1 tab PO DAILY RF: 0 Disposition Disposition (needs filled in before D/C Order can be placed): Home, Self Care
[2021-11-01] MEDS: Senna/Docusate Sodium 1 Tablet PO (09:54)
[2021-11-01] MEDS: Ibuprofen 600 MG Tablet PO (14:42)
== END 2021-11-01 15:33 | disposition home or self-care (01) | DRG 788 ==
PROVIDERS: Admitting Provider Obstetrics & Gynecology; Visit Provider Obstetrics & Gynecology
PROC: 10D00Z1 Extraction of Products of Conception, Low, Open Approach (ICD-10-PCS; CPT 59514; principal; 2021-10-31 11:45)
DX: O34.219 Maternal care for unspecified type scar from previous cesarean delivery (principal); Z37.0 Single live birth; Z3A.39 39 weeks gestation of pregnancy
CPT/HCPCS: 59025; 85025; 85027; 86850; 86900; 86901; 99218; 99251; J7120; A4216; G0378; G0463